=== PATIENT | male | born 1955 | race Two or more races ===

== ENCOUNTER 2020-10-11 09:54 | Inpatient (IN) | payer OTHER ==
[~2020-10-11] VITALS: Ht 165.1 cm; Wt 65.8 kg
[2020-10-11] MEDS ORDERED: PLAVIX75 MG (10:10)
[2020-10-11] MEDS ORDERED: NEURONTIN800 MG (10:10)
[2020-10-11] MEDS ORDERED: METFORMIN HCL1000 M2 ×2 (10:10→10:12)
[2020-10-11] MEDS ORDERED: XARELTO10 MG (10:10)
[2020-10-11] MEDS ORDERED: HYDROCHLOROTH12.5 MG (10:11)
[2020-10-11] MEDS ORDERED: VERAPAMIL ER120 MG (10:11)
[2020-10-11] MEDS ORDERED: ZESTRIL20 MG (10:11)
[2020-10-11] MEDS ORDERED: CRESTOR5 MG (10:12)
[2020-10-11] MEDS ORDERED: HUMULIN 70100 UNIT/2 (10:13)
== END 2020-10-16 19:22 | disposition expired | DRG 336 ==
LOC: ER 09:54 → MEDI 21:50
PROVIDERS: Surgery; ADMIT Internal Medicine; ATTEND Internal Medicine
PROC: 0DQW0ZZ Repair Peritoneum, Open Approach (ICD-10-PCS; 2020-10-14)
PROC: 0DNB0ZZ Release Ileum, Open Approach (ICD-10-PCS; principal; 2020-10-14 08:30)
DX: K56.51 Intestinal adhesions [bands], with partial obstruction (principal); N13.39 Other hydronephrosis; E87.1 Hypo-osmolality and hyponatremia; K91.71 Accidental puncture and laceration of a digestive system organ or structure during a digestive system procedure; E86.0 Dehydration; E11.9 Type 2 diabetes mellitus without complications; Z20.822 Contact with and (suspected) exposure to COVID-19; Z95.5 Presence of coronary angioplasty implant and graft; Z79.4 Long term (current) use of insulin; Y65.8 Other specified misadventures during surgical and medical care